=== PATIENT | female | born 1975 | race Caucasian/White ===

== ENCOUNTER 2020-09-27 07:45 | Emergency (ER) | payer MEDICAID ==
[~2020-09-27] VITALS: Ht 165.1 cm; Wt 74.4 kg
[2020-09-27 07:58] VITALS: BP_SYST 155
--- NOTE | 2020-09-27 07:58 | NUR ---
Patient to ER bed 7 to gown for evaluation. Side rails up. Report given to Tess.
--- NOTE | 2020-09-27 08:05 | NUR ---
PT CAME IN C/O PAIN AND SWELLING TO LEFT SIDE OF OUTER VAGINA. PT STATES SHE HAS HAD A HX OF SEVERAL VULVAL ABSCESSES IN THE PAST WITH DRAINGAGE DONE IN THE HOSPITAL. PT IS AMBULATORY, AAOX4, V/S STABLE
--- NOTE | 2020-09-27 08:10 | NUR ---
# 20 gauge angiocath placed to RAC. Use of asceptic technique. Opsite placed over site. Blood return noted. Blood for lab drawn from site. Flushed with 10 cc of normal saline. No evidence of infiltration noted. Patient tolerated well.
[2020-09-27] MEDS ORDERED: ETOMIDATE 20 MG/ 10 ML VIAL (AMIDATE) IVP ONE (08:15)
[2020-09-27] MEDS ORDERED: MIDAZOLAM HCL 5 MG/5 ML VIAL IVP ONE (08:15)
--- NOTE | 2020-09-27 08:35 | NUR ---
AT THE BEDSIDE WITH ER DR. FARLEY AND RT FOR MODERATE SEDATION FOR I&D OF VULVAR ABSCESS PER MD ORDER. PT TOLERATING WELL
--- NOTE | 2020-09-27 08:35 | NUR ---
MODERATE SEDATION FLOWSHEETS REFERENCE PAPER CHART
[2020-09-27] MEDS ORDERED: CLIN300C12 PO (08:55)
[2020-09-27] MEDS ORDERED: HYDR-3917 PO (08:55)
--- NOTE | 2020-09-27 09:00 | NUR ---
PT SLEEPING ARROUSABLE TO VOICE, EVEN RESPIRATIONS, NO DISTRESS NOTED, V/S STABLE
--- NOTE | 2020-09-27 09:45 | NUR ---
PT AAOX4, NO DISTRESS NOTED, EXPRESSING SHE IS READY TO GO HOME
--- NOTE | 2020-09-27 10:00 | NUR ---
Patient given written and verbal discharge instructions and verbalizes understanding. ER MD discussed with patient the results and treatment provided. Patient in stable condition. ID arm band removed. IV catheter removed intact and dressing applied, no active bleeding. Rx of CLINDAMYCIN AND NORCO given. Patient educated on pain management and to follow up with PMD. Pain Scale 0/10. Opportunity for questions provided and answered. Medication side effect fact sheet provided.
[2020-09-27 10:05] VITALS: BP_SYST 148
== END 2020-09-27 10:00 | disposition home or self-care (01) ==
LOC: SED 07:45
DX: N76.4 Abscess of vulva (principal)
CPT/HCPCS: 56405; 99285; J2250; J3490